=== PATIENT | male | born 1970 ===

== ENCOUNTER 2017-05-21 11:14 | Emergency (ER) | payer OTHER ==
[2017-05-21 11:22] VITALS: BP 136/77; PULSE 73; RESP 18; TEMP 98.1; O2SAT 98
[2017-05-21] MEDS ORDERED: Naproxen 550 mg Tab PO STA (12:00)
[2017-05-21] MEDS ORDERED: Naproxen 550 mg Tab PO ONE (12:07)
--- NOTE | 2017-05-21 12:20 | C.PDOC ---
History Of Present Illness 47 y/o male with Hx of Gout presents to ED with complaints of right foot pain since yesterday. Patient is concerned that it is gout, notes he has had it in a similar spot. Pain aggravated by movement. Denies fever, trauma, numbness, weakness or any other complaints at this time. Notes he follows the gout diet. Time Seen by Provider: 05/21/17 11:28 Chief Complaint (Nursing): Lower Extremity Problem/Injury History Per: Patient History/Exam Limitations: no limitations Current Symptoms Are (Timing): Still Present Past Medical History Reviewed: Historical Data, Nursing Documentation, Vital Signs Vital Signs: Last Vital Signs Temp 98.1 F 05/21/17 11:21 Pulse 73 05/21/17 11:21 Resp 18 05/21/17 11:21 BP 136/77 05/21/17 11:21 Pulse Ox 98 05/21/17 12:53 - Medical History PMH: No Chronic Diseases Surgical History: No Surg Hx Family History: States: No Known Family Hx - Social History Hx Alcohol Use: No Hx Substance Use: No - Immunization History Hx Tetanus Toxoid Vaccination: No Hx Influenza Vaccination: No Hx Pneumococcal Vaccination: No Review Of Systems Except As Marked, All Systems Reviewed And Found Negative. Constitutional: Negative for: Fever, Chills Musculoskeletal: Positive for: Foot Pain. Negative for: Leg Pain Skin: Negative for: Rash Neurological: Negative for: Weakness, Numbness Physical Exam - Physical Exam Appears: Non-toxic, No Acute Distress Skin: Warm, Dry, No Rash Head: Atraumatic, Normacephalic Eye(s): bilateral: Normal Inspection, EOMI Nose: Normal Oral Mucosa: Moist Neck: Normal ROM, Supple Chest: Symmetrical Respiratory: No Accessory Muscle Use Extremity: Normal ROM, Tenderness (just below lateral malleolus of right foot, no ertyhema or warmth), No Calf Tenderness, Capillary Refill (<2 seconds), No Deformity, No Swelling Extremity: Bilateral: Normal Color And Temperature, Normal ROM Pulses: Left Dorsalis Pedis: Normal, Right Dorsalis Pedis: Normal Neurological/Psych: Oriented x3, Normal Motor, Normal Sensation ED Course And Treatment O2 Sat by Pulse Oximetry: 98 (RA) Pulse Ox Interpretation: Normal Progress Note: Pt declined xray . Naproxen ordered. Pt notes thats what he took last time he had gout exacerbation. Instructed to follo gail with PMD in 1- 2 days or return to ER if symptoms persist or worsen. Disposition - Disposition Referrals: Kings Palma III, MD [Staff Provider] - Disposition: HOME/ ROUTINE Disposition Time: 12:52 Condition: STABLE Additional Instructions: Vaya a babin mdico o la clnica en 2-5 zhu sin falta, para mas evaluacin. [place] los medicamentos murray indicado. Volver a la tho de emergencia en cualquier momento si los sntomas persisten o empeoran. Prescriptions: Indomethacin [Indocin] 25 mg PO TID #30 cap Instructions: Gout (ED) Forms: [employer] (Somali) Print Language: SOMALI - Clinical Impression Clinical Impression: Ankle pain - PA / MACHINE SET UP / Resident Statement MD/DO has reviewed & agrees with the documentation as recorded. - Scribe Statement The provider has reviewed the documentation as recorded by the Scribe Zahra Siddiqi All medical record entries made by the Scribe were at my direction and personally dictated by me. I have reviewed the chart and agree that the record accurately reflects my personal performance of the history, physical exam, medical decision making, and the department course for this patient. I have also personally directed, reviewed, and agree with the discharge instructions and disposition.
== END 2017-05-21 13:04 | disposition home or self-care (01) ==
LOC: C.ER 11:14
DX: M25.571 Pain in right ankle and joints of right foot (principal)